=== PATIENT | female | born 1955 | race Caucasian/White ===

== ENCOUNTER 2017-09-08 15:20 | Emergency (ER) | payer OTHER ==
[2017-09-08] MEDS ORDERED: TORAdol 30 mg Injection IV ONE (15:43)
--- NOTE | 2017-09-08 15:47 | ERPHSYRPT ---
- History of Present Illness Time Seen by Provider: 09/08/17 15:45 Historian: patient Patient Subjective Stated Complaint: pt reports heriberto 30 min ago sudden onset of right sided abd pain-denies vomiting but states that she feels like she could but doesn't usually vomit-denies difficulty with urination or bowels Triage Nursing Assessment: pt pink warm and afk-viecb-cdgfobtive with no difficulty-abd soft and tender to palp-pt states pain does not change rather there is palp or not-denies rebound tenderness-resp easy and nonlabored Physician History: mild to mod rlq ache pain for one hour, nonrad, no injury, no fever, no emesis Allergies/Adverse Reactions: codeine Allergy (Mild, Verified 09/08/17 15:33) Hives Home Medications: Adalimumab [Humira Pen] 0.8 ml IM WEEKLY 09/08/17 [History] Aspirin 81 gm Chew [Baby Aspirin 81 mg Chew] 81 mg PO DAILY 09/08/17 [ History] Levothyroxine Sodium [Synthroid] 125 mcg PO DAILY 09/08/17 [History] Loratadine 10 mg PO DAILY 09/08/17 [History] Losartan/Hydrochlorothiazide [Losartan-Hctz 50-12.5 mg Tab] 1 tab PO DAILY 09/08 [History] Metoprolol Tartrate 25 mg PO DAILY 09/08/17 [History] Pravastatin Sodium 40 mg PO DAILY 09/08/17 [History] Hx Tetanus, Diphtheria Vaccination/Date Given: No Hx Influenza Vaccination/Date Given: Yes Hx Pneumococcal Vaccination/Date Given: No Immunizations Up to Date: Yes - Review of Systems Constitutional: No Fever Eyes: No Eye Redness Ears, Nose, & Throat: No Mouth Pain Respiratory: No Dyspnea Cardiac: No Chest Pain Abdominal/Gastrointestinal: Abdominal Pain, No Vomiting Genitourinary Symptoms: No Dysuria Musculoskeletal: No Back Pain Skin: No Rash Neurological: No Headache - Past Medical History Pertinent Past Medical History: Yes Cardiac History: High Cholesterol, Other Endocrine Medical History: Diabetes Type II, Hypothyroidism - Past Surgical History Past Surgical History: Yes Female Surgical History: Hysterectomy - Social History Smoking Status: Never smoker Exposure to second hand smoke: No Drug Use: none Patient Lives Alone: No - Female History Hx Last Menstrual Period: hysterectomy Hx Now: No - Nursing Vital Signs Nursing Vital Signs: Initial Vital Signs Temperature 98.9 F 09/08/17 15:29 Pulse Rate 87 09/08/17 15:29 Respiratory Rate 18 09/08/17 15:29 Blood Pressure 169/94 09/08/17 15:29 O2 Sat by Pulse Oximetry 94 L 09/08/17 15:29 Pain Scale Pain Intensity 4 - Physical Exam General Appearance: no apparent distress Eye Exam: PERRL/EOMI, eyes nml inspection Ears, Nose, Throat Exam: moist mucous membranes Neck Exam: normal inspection Respiratory Exam: normal breath sounds Cardiovascular Exam: regular rate/rhythm Gastrointestinal/Abdomen Exam: soft, tenderness, No distention, No pulsatile mass, No rebound Extremity Exam: normal inspection Neurologic Exam: alert, oriented x 3, cooperative Skin Exam: warm, dry SpO2 Interpretation: normal SpO2: 94 Oxygen Delivery: Room Air - Course Nursing assessment & vital signs reviewed: Yes EKG Interpreted by Me: Other (nsr 76, no stemi) - CT Exams Abdomen/Pelvis CT Interpretation: Discussed w/radiologist, Other (right hydronephrosis and 1.5mm stone at right uvj) Ordered Tests: Active Orders 24 hr Category Date Time Status EKG-ER Only STAT Care 09/08/17 15:47 Active IV Insertion STAT Care 09/08/17 15:43 Active ABDOMEN AND PELVIS W/0 CONTRAS [CT] Stat Exams 09/08/17 15:43 Completed CBC W DIFF Stat Lab 09/08/17 16:18 Completed CMP Stat Lab 09/08/17 16:18 Completed CULTURE,URINE Stat Lab 09/08/17 16:02 Received LIPASE Stat Lab 09/08/17 16:18 Completed TROPONIN Q3H Lab 09/08/17 16:18 Completed TROPONIN Q3H Lab 09/08/17 19:00 Ordered TROPONIN Q3H Lab 09/08/17 22:00 Ordered UA W/ MICROSCOPIC Stat Lab 09/08/17 16:02 Completed Medication Summary Discontinued Medications Generic Name Dose Route Start Last Admin Trade Name Freq PRN Reason Stop Dose Admin Sodium Chloride 1,000 mls @ 999 mls/hr 09/08/17 15:52 09/08/17 16:02 Sodium Chloride 0.9% 1000 Ml IV 09/08/17 16:52 999 mls/hr .Q1H1M STA Administration Sodium Chloride Confirm 09/08/17 15:53 Sodium Chloride 0.9% 1000 Ml Administered 09/08/17 15:54 Dose 1,000 mls @ ud .ROUTE .STK-MED ONE Ketorolac Tromethamine 30 mg 09/08/17 15:43 09/08/17 16:02 Toradol 30 Mg Injection IV 09/08/17 15:44 30 mg STAT ONE Administration Ketorolac Tromethamine Confirm 09/08/17 15:52 Toradol 30 Mg Injection Administered 09/08/17 15:53 Dose 30 mg .ROUTE .STK-MED ONE Ondansetron HCl 4 mg 09/08/17 15:52 09/08/17 16:02 Zofran 4 Mg/2 Ml Vial IV 09/08/17 15:53 4 mg STAT ONE Administration Ondansetron HCl Confirm 09/08/17 15:52 Zofran 4 Mg/2 Ml Vial Administered 09/08/17 15:53 Dose 4 mg .ROUTE .STK-MED ONE Lab/Rad Data: Laboratory Result Diagrams 09/08/17 16:18 09/08/17 16:18 Laboratory Results 09/08/17 09/08/17 09/08/17 Range/Units 16:18 16:18 16:18 WBC 10.3 (4.0-10.5) K/mm3 RBC 4.77 (4.1-5.4) M/mm3 Hgb 13.8 (12.0-16.0) gm/dl Hct 41.0 (35-47) % MCV 86.0 (78-100) fl MCH 28.9 (26-32) pg MCHC 33.7 (32-36) g/dl RDW 13.9 (11.5-14.0) % Plt Count 214 (150-450) K/mm3 MPV 10.4 H (6-9.5) fl Gran % 72.7 H (36.0-66.0) % Eos # (Auto) 0.25 (0-0.5) Absolute Lymphs (auto) 1.65 (1.0-4.6) Absolute Monos (auto) 0.84 (0.0-1.3) Lymphocytes % 16.1 L (24.0-44.0) % Monocytes % 8.2 (0.0-12.0) % Eosinophils % 2.4 (0.00-5.0) % Basophils % 0.6 (0.0-0.4) % Absolute Granulocytes 7.48 H (1.4-6.9) Basophils # 0.06 (0-0.4) Sodium 143 (137-145) mmol/L Potassium 3.7 (3.5-5.1) mmol/L Chloride 104 (98-107) mmol/L Carbon Dioxide 25 (22-30) mmol/L Anion Gap 17.8 H (5-15) MEQ/L BUN 18 H (7-17) mg/dL Creatinine 1.09 H (0.52-1.04) mg/dL Estimated GFR 54.1 ML/MIN Glucose 166 H (74-106) mg/dL Calcium 9.8 (8.4-10.2) mg/dL Total Bilirubin 0.40 (0.2-1.3) mg/dL AST 22 (14-36) U/L ALT 21 (0-35) U/L Alkaline Phosphatase 65 (38-126) U/L Troponin I < 0.012 (0.000-0.034) ng/mL Serum Total Protein 7.6 (6.3-8.2) g/dL Albumin 4.6 (3.5-5.0) g/dL Lipase 67 (23-300) U/L Ur Collection Type Urine Color (YELLOW) Urine Appearance (CLEAR) Urine pH (5-6) Ur Specific [place] (1.005-1.025) Urine Protein (Negative) Urine Ketones (NEGATIVE) Urine Blood (0-5) Juan/ul Urine Nitrite (NEGATIVE) Urine Bilirubin (NEGATIVE) Urine Urobilinogen (0-1) mg/dL Ur Leukocyte Esterase (NEGATIVE) Urine Microscopic RBC (0-2) /HPF Urine Microscopic WBC (0-5) /HPF Ur Epithelial Cells (FEW) /HPF Urine Bacteria (NEGATIVE) /HPF Urine Culture Reflexed (NO) Urine Glucose (NEGATIVE) mg/dL Specimen Received 09/08/17 Range/Units 16:02 WBC (4.0-10.5) K/mm3 RBC (4.1-5.4) M/mm3 Hgb (12.0-16.0) gm/dl Hct (35-47) % MCV (78-100) fl MCH (26-32) pg MCHC (32-36) g/dl RDW (11.5-14.0) % Plt Count (150-450) K/mm3 MPV (6-9.5) fl Gran % (36.0-66.0) % Eos # (Auto) (0-0.5) Absolute Lymphs (auto) (1.0-4.6) Absolute Monos (auto) (0.0-1.3) Lymphocytes % (24.0-44.0) % Monocytes % (0.0-12.0) % Eosinophils % (0.00-5.0) % Basophils % (0.0-0.4) % Absolute Granulocytes (1.4-6.9) Basophils # (0-0.4) Sodium (137-145) mmol/L Potassium (3.5-5.1) mmol/L Chloride (98-107) mmol/L Carbon Dioxide (22-30) mmol/L Anion Gap (5-15) MEQ/L BUN (7-17) mg/dL Creatinine (0.52-1.04) mg/dL Estimated GFR ML/MIN Glucose (74-106) mg/dL Calcium (8.4-10.2) mg/dL Total Bilirubin (0.2-1.3) mg/dL AST (14-36) U/L ALT (0-35) U/L Alkaline Phosphatase (38-126) U/L Troponin I (0.000-0.034) ng/mL Serum Total Protein (6.3-8.2) g/dL Albumin (3.5-5.0) g/dL Lipase (23-300) U/L Ur Collection Type CLEAN CATCH Urine Color YELLOW (YELLOW) Urine Appearance CLEAR (CLEAR) Urine pH 5.0 (5-6) Ur Specific [place] 1.020 (1.005-1.025) Urine Protein TRACE (Negative) Urine Ketones NEGATIVE (NEGATIVE) Urine Blood 250 (0-5) Juan/ul Urine Nitrite NEGATIVE (NEGATIVE) Urine Bilirubin NEGATIVE (NEGATIVE) Urine Urobilinogen NORMAL (0-1) mg/dL Ur Leukocyte Esterase 1+ (NEGATIVE) Urine Microscopic RBC 10-15 (0-2) /HPF Urine Microscopic WBC 10-15 (0-5) /HPF Ur Epithelial Cells MODERATE (FEW) /HPF Urine Bacteria FEW (NEGATIVE) /HPF Urine Culture Reflexed YES (NO) Urine Glucose NEGATIVE (NEGATIVE) mg/dL Specimen Received 09/08/17 1600 - Progress Progress: improved Progress Note: 09/08/17 17:49 see your doctor, return if worse Counseled pt/family regarding: lab results, diagnosis, need for follow-up, rad results - Departure Time of Disposition: 17:49 Departure Disposition: Home Clinical Impression: Hydronephrosis Qualifiers: Hydronephrosis type: with renal calculous obstruction Qualified Code(s): N13.2 - Hydronephrosis with renal and ureteral calculous obstruction Condition: Stable Critical Care Time: No Referrals: AV SEXTON NP [Primary Care Provider] - Additional Instructions: call your doctor for Urology referral Prescriptions: Ondansetron ODT 4 MG [Zofran Odt 4 mg] 1 tab PO Q6H PRN PRN #10 tab.rapdis PRN Reason: Nausea/Vomiting Cephalexin Mh 500 mg [Keflex 500 mg] 1 cap PO QID #40 capsule Tamsulosin HCl 0.4 mg [Flomax 0.4 MG] 1 cap PO HS #7 cap
[2017-09-08] MEDS ORDERED: Zofran 4 MG/2 ML VIAL IV ONE (15:52)
[2017-09-08] MEDS ORDERED: Zofran 4 MG/2 ML VIAL ONE (15:52)
[2017-09-08] MEDS ORDERED: TORAdol 30 mg Injection ONE (15:52)
[2017-09-08] MEDS ORDERED: Sodium Chloride 0.9% 1000 ML 1,000 ML IV STA (15:52)
[2017-09-08] MEDS ORDERED: Sodium Chloride 0.9% 1000 ML 1,000 ML ONE (15:53)
[2017-09-08 16:24] LABS: BASOPHIL % 0.6 % (0.0-0.4); Basophil (Absolute #) 0.06 (0-0.4); Eosinophil % 2.4 % (0.00-5.0); Eosinophil (Absolute #) 0.25 (0-0.5); Granulocyte Absolute (ANC) 7.48 (1.4-6.9); Granulocytes % 72.7 % (36.0-66.0); Hemoglobin 13.8 gm/dl (12.0-16.0); Lymphocyte (Absolute #) 1.65 (1.0-4.6); Lymphocytes % 16.1 % (24.0-44.0); Mean Corpuscular Hemoglobin 28.9 pg (26-32); Mean Corpuscular Hgb Concent. 33.7 g/dl (32-36); Mean Platelet Volume 10.4 fl (6-9.5); Monocyte (Absolute #) 0.84 (0.0-1.3); Monocytes % 8.2 % (0.0-12.0); Platelet Count 214 K/mm3 (150-450); Red Blood Count 4.77 M/mm3 (4.1-5.4); Red Cell Distribution Width 13.9 % (11.5-14.0); White Blood Count 10.3 K/mm3 (4.0-10.5)
[2017-09-08 16:45] LABS: ALBUMIN 4.6 g/dL (3.5-5.0); ANION GAP 17.8 MEQ/L (5-15); BILIRUBIN,TOTAL 0.4 mg/dL (0.2-1.3); Calcium 9.8 mg/dL (8.4-10.2); Creatinine 1 1.09 mg/dL (0.52-1.04); Potassium 3.7 mmol/L (3.5-5.1); Total Protein 7.6 g/dL (6.3-8.2)
[2017-09-08 16:48] LABS: Appearance CLEAR (CLEAR); Bilirubin NEGATIVE (NEGATIVE); Blood 250 Ery/ul (0-5); Glucose NEGATIVE (NEGATIVE); Ketones NEGATIVE (NEGATIVE); Leukocyte Esterase 1+ (NEGATIVE); Nitrite NEGATIVE (NEGATIVE); Protein,Urine Dip TRACE (Negative); Urobilinogen NORMAL mg/dL (0-1)
[2017-09-08 16:49] LABS: Bacteria FEW /HPF (NEGATIVE); Epithelial Cells MODERATE /HPF (FEW)
--- NOTE | 2017-09-08 17:02 | XRAY ---
Exam: CT of the abdomen and pelvis without IV contrast from 09/08/2017. CTDI: 26.74 Comparison: None. Indication: Right lower quadrant/flank pain, nausea and vomiting, symptoms started this afternoon. The patient is status post hysterectomy. Technique: Non-IV contrast axial images were obtained through the abdomen and pelvis. Reconstructed coronal and sagittal images were created and reviewed. Findings: The lung bases reveals some minimal compression atelectatic changes at the posterior lateral left lung base. No active lung disease is seen. However, there appears to be a small pericardial effusion, best seen on axial images #3 and #4. Correlate clinically. The right kidney reveals some asymmetric mild hydronephrosis and hydroureter down to the ureterovesical junction. Interestingly, a stone is not evident seen on the axial images, but I do detect a tiny approximately 1.5 mm in diameter obstructing stone within the distal right ureter at the ureterovesical junction on coronal image #97 and sagittal image #62. These findings are consistent with acute obstructive uropathy. The left ureter appears unremarkable. The remainder of the right kidney is remarkable for a 3.0 cm cyst within the lower pole. I also note a. 2.45 cm in diameter cyst at the lateral margin of lower pole of the left kidney and a small 0.7 cm in diameter apparent hyperdense cyst at the lower pole of the left kidney. No other renal or ureteral calculi are seen. The urinary bladder is almost empty. The liver is remarkable for prominent inferior extension of the right lobe (Regine's lobe) representing a normal variant. No definite focal hepatic mass or intrahepatic biliary duct distention is seen. Assessment of the solid organs is limited on a non-IV contrast study only. The gallbladder is partially contracted. No dense calcifications are seen within the gallbladder. The spleen measures 13.2 cm in greatest length on sagittal image #128. This is borderline enlarged. No focal splenic mass is seen. Secretion/fluid is seen within the stomach. The pancreas appears unremarkable. I believe there is a 1.1 cm partially calcified splenic artery aneurysm within the left upper quadrant on axial images #22 through #24. The adrenal glands appear unremarkable. Mild atherosclerotic vascular calcification is seen within the abdominal aorta, origin of the celiac axis and SMA, and origin of both renal arteries, left greater than right. No abdominal aortic aneurysm or abnormal retroperitoneal lymphadenopathy is seen. No free intraperitoneal air is identified. The anterior abdominal wall appears intact. The appendix appears unremarkable within the right lower quadrant. No right lower quadrant inflammation is seen. The uterus is surgically absent. No enlarged pelvic lymph nodes or free fluid is seen. I see no evidence of bowel distention or obstruction. The skeleton reveals no fracture or aggressive bone lesion. There appears to be a small bone island within the T10 vertebral body. Mild lower lumbar facet joint arthropathy is seen at L4-L5 and L5-S1. Mild degenerative changes are seen at the inferior aspect of both sacroiliac joints, left greater than right, manifested by spurring and sclerosis on both sides of each SI joint. However, no significant SI joint narrowing is seen. Impression: 1. There appears to be a 1.5 mm in diameter obstructing stone at the right ureterovesical junction causing mild right-sided hydronephrosis and hydroureter. I believe this is the cause of the patient's symptoms. 2. Mild pericardial effusion, best seen on axial images #3 and #4. 3. The appendix appears unremarkable. 4. No other acute intra-abdominal or pelvic process seen. 5. Other incidental findings are seen such as bilateral renal cortical cysts, a small calcified splenic artery aneurysm, and some atherosclerotic vascular calcification. The uterus is surgically absent.
[2017-09-08 18:01] VITALS: O2SAT 95
[2017-09-08 18:14] VITALS: BP 154/94; PULSE 73
== END 2017-09-08 18:13 | disposition home or self-care (01) ==
LOC: ED 15:20
DX: N13.2 Hydronephrosis with renal and ureteral calculous obstruction (principal); E11.9 Type 2 diabetes mellitus without complications; E03.9 Hypothyroidism, unspecified; E78.00 Pure hypercholesterolemia, unspecified; Z79.899 Other long term (current) drug therapy
CPT/HCPCS: 36000; 36415; 74176; 80053; 81000; 83690; 84484; 85025; 87077; 87086; 87186; 93005; 96374; 96375; 99284; J1885; J2405

== ENCOUNTER 2020-12-15 11:29 | Emergency (ER) | payer OTHER ==
--- NOTE | 2020-12-15 11:37 | ERPHSYRPT ---
- History of Present Illness Time Seen by Provider: 12/15/20 11:36 Source: patient Exam Limitations: no limitations Physician History: This is a 65-year-old white female who is obese and is a patient of nurse raul Bennett and presents with 3-week history of intermittent nausea and vomiting symptoms. She had no diarrhea. She denies chest pain. She has some epigastric discomfort which seems to have improved with the use of proton pump inhibitor omeprazole that the patient started Friday prior to this evaluation. However she still has been having episodes of nausea and vomiting. Lab work was performed on 12/12/2020 which was reported to the patient today showing "possible acute renal failure" per the patient. Patient also had a negative Covid 19 test that was performed and read out on 12/12/2020. Patient has a history of hypothyroidism, elevated cholesterol and hypertension. Patient has no shortness of breath. She has had no fevers. She has no cough and no sore throat. Patient states she actually feels pretty good at this time because she took her medicine this morning. She was told to come to the emergency department for evaluation by nurse raul Bennett's office because of abnormal labs. Patient has no history of acute renal failure episodes in the past. She does not see a longwall shearer operator. Timing/Duration: week(s) (3) Severity: mild Modifying Factors: Improves With: medication Associated Symptoms: nausea, vomiting, abdominal pain (Epigastric) Allergies/Adverse Reactions: codeine Allergy (Mild, Verified 12/15/20 11:35) Hives Home Medications: Aspirin 81 gm Chew [Baby Aspirin 81 mg Chew] 81 mg PO DAILY 09/08/17 [History] Levothyroxine Sodium [Synthroid] 125 mcg PO DAILY 09/08/17 [History] Loratadine 10 mg PO DAILY 09/08/17 [History] Losartan/Hydrochlorothiazide [Losartan-Hctz 50-12.5 mg Tab] 1 tab PO DAILY 09/08/17 [History] Metoprolol Tartrate 25 mg PO DAILY 09/08/17 [History] Pravastatin Sodium 40 mg PO DAILY 09/08/17 [History] Omeprazole 40 mg PO DAILY 12/15/20 [History] Sucralfate 1 gm [Carafate 1 GM] 1 gm PO TID 12/15/20 [History] Hx Tetanus, Diphtheria Vaccination/Date Given: No Hx Influenza Vaccination/Date Given: Yes Hx Pneumococcal Vaccination/Date Given: No Travel Risk - International Travel Have you traveled outside of the country in past 3 weeks: No - Coronavirus Screening Are you exhibiting any of the following symptoms?: No Close contact with a COVID-19 positive Pt in past 14-21 Days: No - Review of Systems Constitutional: No Symptoms Eyes: No Symptoms Ears, Nose, & Throat: No Symptoms Respiratory: No Symptoms Cardiac: No Symptoms Abdominal/Gastrointestinal: Abdominal Pain (Epigastric), Nausea, Vomiting Genitourinary Symptoms: No Symptoms Musculoskeletal: No Symptoms Skin: No Symptoms Neurological: No Symptoms Psychological: No Symptoms Endocrine: No Symptoms Hematologic/Lymphatic: No Symptoms Immunological/Allergic: No Symptoms All Other Systems: Reviewed and Negative - Past Medical History Pertinent Past Medical History: Yes Cardiac History: High Cholesterol, Other Endocrine Medical History: Diabetes Type II, Hypothyroidism - Past Surgical History Past Surgical History: Yes Female Surgical History: Hysterectomy - Social History Smoking Status: Never smoker Exposure to second hand smoke: No Drug Use: none Patient Lives Alone: No - Nursing Vital Signs Nursing Vital Signs: Initial Vital Signs Temperature 96.8 F 12/15/20 11:36 Pulse Rate 64 12/15/20 11:36 Respiratory Rate 18 12/15/20 11:36 Blood Pressure 148/77 12/15/20 11:36 O2 Sat by Pulse Oximetry 97 12/15/20 11:36 Pain Scale Pain Intensity 0 - Physical Exam General Appearance: no apparent distress, alert, anxiety, obese Eye Exam: PERRL/EOMI, eyes nml inspection Ears, Nose, Throat Exam: normal ENT inspection, moist mucous membranes Neck Exam: normal inspection, non-tender, supple, full range of motion Respiratory Exam: normal breath sounds, lungs clear, airway intact, No chest tenderness, No respiratory distress Cardiovascular Exam: regular rate/rhythm, normal heart sounds, normal peripheral pulses Gastrointestinal/Abdomen Exam: soft, normal bowel sounds, tenderness (Mild epigastric tenderness to palpation), guarding, No rebound Pelvic Exam: not done Rectal Exam: not done Back Exam: normal inspection, normal range of motion, No CVA tenderness, No vertebral tenderness Extremity Exam: normal inspection, normal range of motion, pelvis stable Neurologic Exam: alert, oriented x 3, cooperative, reel winder II-XII nml as tested, nor mal mood/affect, nml cerebellar function, nml station & gait, sensation nml Skin Exam: normal color, warm, dry Lymphatic Exam: No adenopathy SpO2 Interpretation: normal O2 Delivery: Room Air - Course Nursing assessment & vital signs reviewed: Yes EKG Interpreted by Me: RATE (61), Sinus Rhythm, NORMAL AXIS, NORMAL INTERVALS, NORMAL QRS, NORMAL ST-T, Other (No acute ischemic changes on today's EKG. There are no changes when compared to EKG dated 09/08/2017.) Ordered Tests: Active Orders 24 hr Category Date Time Status EKG-ER Only STAT Care 12/15/20 11:46 Active IV Insertion STAT Care 12/15/20 11:46 Active ABDOMEN AND PELVIS W/0 CONTRAS [CT] Stat Exams 12/15/20 11:46 Completed AMYLASE Stat Lab 12/15/20 13:30 Completed CBC W DIFF Stat Lab 12/15/20 11:46 Completed CMP Stat Lab 12/15/20 13:30 Completed CULTURE,URINE Stat Lab 12/15/20 11:51 Received LIPASE Stat Lab 12/15/20 13:30 Completed Lactic Acid Stat Lab 12/15/20 13:12 Completed T4 (Thyroxine) Stat Lab 12/15/20 13:30 Completed TROPONIN Q3H Lab 12/15/20 13:30 Completed TROPONIN Q3H Lab 12/16/20 00:00 Ordered TSH [TSH, 3RD Generation] Stat Lab 12/15/20 13:30 Completed UA W/RFX UR CULTURE Stat Lab 12/15/20 11:51 Completed Medication Summary Discontinued Medications Generic Name Dose Route Start Last Admin Trade Name Ishmael PRN Reason Stop Dose Admin Sodium Chloride 1,000 mls @ 999 mls/hr 12/15/20 11:46 12/15/20 12:55 Sodium Chloride 0.9% 1000 Ml IV 12/15/20 12:46 Infused .Q1H1M STA Infusion Sodium Chloride Confirm 12/15/20 11:52 Sodium Chloride 0.9% 1000 Ml Administered 12/15/20 11:53 Dose 1,000 mls @ ud .ROUTE .STK-MED ONE Ceftriaxone Sodium/Dextrose 1 g in 50 mls @ 100 mls/hr 12/15/20 13:25 12/15/20 14:35 Rocephin 1 Gm-D5w 50 Ml Bag IV 12/15/20 13:54 Infused STAT STA Infusion Ceftriaxone Sodium/Dextrose Confirm 12/15/20 13:40 Rocephin 1 Gm-D5w 50 Ml Bag Administered 12/15/20 13:41 Dose 1 g in 50 mls @ ud IV .STK-MED ONE Ondansetron HCl 4 mg 12/15/20 11:46 12/15/20 11:54 Ondansetron Hcl 4 Mg/2 Ml Vial IV 12/15/20 11:47 4 mg STAT ONE Administration Ondansetron HCl Confirm 12/15/20 11:52 Ondansetron Hcl 4 Mg/2 Ml Vial Administered 12/15/20 11:53 Dose 4 mg .ROUTE .STK-MED ONE Lab/Rad Data: Laboratory Result Diagrams 12/15/20 11:46 12/15/20 13:30 Laboratory Results 12/15/20 12/15/20 12/15/20 Range/Units 13:30 13:30 13:30 WBC (4.0-10.5) K/mm3 RBC (4.1-5.4) M/mm3 Hgb (12.0-16.0) gm/dl Hct (35-47) % MCV (78-100) fl MCH (26-32) pg MCHC (32-36) g/dl RDW (11.5-14.0) % Plt Count (150-450) K/mm3 MPV (7.5-11.0) fl Gran % (36.0-66.0) % Eos # (Auto) (0-0.5) Absolute Lymphs (auto) (1.0-4.6) Absolute Monos (auto) (0.0-1.3) Lymphocytes % (24.0-44.0) % Monocytes % (0.0-12.0) % Eosinophils % (0.00-5.0) % Basophils % (0.0-0.4) % Absolute Granulocytes (1.4-6.9) Basophils # (0-0.4) Sodium 140 (137-145) mmol/L Potassium 4.2 (3.5-5.1) mmol/L Chloride 111 H (98-107) mmol/L Carbon Dioxide 13 L* (22-30) mmol/L Anion Gap 19.5 H (5-15) MEQ/L BUN 92 H (7-17) mg/dL Creatinine 7.26 H (0.52-1.04) mg/dL Estimated GFR 6.0 ML/MIN Glucose 87 (74-106) mg/dL Lactic Acid (0.4-2.0) Calcium 8.9 (8.4-10.2) mg/dL Total Bilirubin 0.30 (0.2-1.3) mg/dL AST 14 (14-36) U/L ALT 8 (0-35) U/L Alkaline Phosphatase 54 (38-126) U/L Troponin I < 0.012 (0.000-0.034) ng/mL Serum Total Protein 6.9 (6.3-8.2) g/dL Albumin 3.8 (3.5-5.0) g/dL Amylase 136 H (30-110) U/L Lipase 215 (23-300) U/L Thyroxine (T4) 8.54 (5.53-10.96) ug/dL TSH 3rd Generation 0.266 L (0.47-4.68) mIU/L Urine Color (YELLOW) Urine Appearance (CLEAR) Urine pH (5-6) Ur Specific [place] (1.005-1.025) Urine Protein (Negative) Urine Ketones (NEGATIVE) Urine Blood (0-5) Juan/ul Urine Nitrite (NEGATIVE) Urine Bilirubin (NEGATIVE) Urine Urobilinogen (0-1) mg/dL Ur Leukocyte Esterase (NEGATIVE) Urine WBC (Auto) (0-5) /HPF Urine RBC (Auto) (0-2) /HPF U Epithel Cells (Auto) (FEW) /HPF Urine Bacteria (Auto) (NEGATIVE) /HPF U Non-Squamous Epi Cells (FEW) /HPF Amorphous Crystals (NEGATIVE) /HPF Urine Culture Reflexed (NO) Urine Glucose (NEGATIVE) mg/dL 12/15/20 12/15/20 12/15/20 Range/Units 13:12 11:51 11:46 WBC 9.6 (4.0-10.5) K/mm3 RBC 3.83 L (4.1-5.4) M/mm3 Hgb 10.7 L (12.0-16.0) gm/dl Hct 33.0 L (35-47) % MCV 86.2 (78-100) fl MCH 27.9 (26-32) pg MCHC 32.4 (32-36) g/dl RDW 13.7 (11.5-14.0) % Plt Count 252 (150-450) K/mm3 MPV 9.4 (7.5-11.0) fl Gran % 79.4 H (36.0-66.0) % Eos # (Auto) 0.19 (0-0.5) Absolute Lymphs (auto) 1.19 (1.0-4.6) Absolute Monos (auto) 0.57 (0.0-1.3) Lymphocytes % 12.4 L (24.0-44.0) % Monocytes % 5.9 (0.0-12.0) % Eosinophils % 2.0 (0.00-5.0) % Basophils % 0.3 (0.0-0.4) % Absolute Granulocytes 7.60 H (1.4-6.9) Basophils # 0.03 (0-0.4) Sodium (137-145) mmol/L Potassium (3.5-5.1) mmol/L Chloride (98-107) mmol/L Carbon Dioxide (22-30) mmol/L Anion Gap (5-15) MEQ/L BUN (7-17) mg/dL Creatinine (0.52-1.04) mg/dL Estimated GFR ML/MIN Glucose (74-106) mg/dL Lactic Acid 0.8 (0.4-2.0) Calcium (8.4-10.2) mg/dL Total Bilirubin (0.2-1.3) mg/dL AST (14-36) U/L ALT (0-35) U/L Alkaline Phosphatase (38-126) U/L Troponin I (0.000-0.034) ng/mL Serum Total Protein (6.3-8.2) g/dL Albumin (3.5-5.0) g/dL Amylase (30-110) U/L Lipase (23-300) U/L Thyroxine (T4) (5.53-10.96) ug/dL TSH 3rd Generation (0.47-4.68) mIU/L Urine Color YELLOW (YELLOW) Urine Appearance CLOUDY (CLEAR) Urine pH 5.0 (5-6) Ur Specific [place] 1.012 (1.005-1.025) Urine Protein 30 (Negative) Urine Ketones NEGATIVE (NEGATIVE) Urine Blood MODERATE (0-5) Juan/ul Urine Nitrite NEGATIVE (NEGATIVE) Urine Bilirubin NEGATIVE (NEGATIVE) Urine Urobilinogen NEGATIVE (0-1) mg/dL Ur Leukocyte Esterase LARGE (NEGATIVE) Urine WBC (Auto) 51-100 (0-5) /HPF Urine RBC (Auto) 6-10 (0-2) /HPF U Epithel Cells (Auto) FEW (FEW) /HPF Urine Bacteria (Auto) MODERATE (NEGATIVE) /HPF U Non-Squamous Epi Cells RARE (FEW) /HPF Amorphous Crystals FEW (NEGATIVE) /HPF Urine Culture Reflexed YES (NO) Urine Glucose 50 (NEGATIVE) mg/dL - Progress Progress: improved Progress Note: 12/15/20 14:40 Cat scan of the abdomen pelvis without contrast shows a new prominent appendix. Patient was reexamined. Patient has no pain in the right lower quadrant on examination/palpation. She has mild discomfort in the epigastric area. 12/15/20 17:27 medical decision making: This patient was discussed with [facility] emergency department physician Dr. Rosado. I reviewed the patient history, laboratory work-up and x-ray findings with him. He accepts the patient in transfer emergency department to emergency department. He wanted an additional liter of fluid of normal saline. Counseled pt/family regarding: lab results, diagnosis, rad results - Departure Departure Disposition: Transfer Clinical Impression: Acute renal failure, Urinary tract infection Condition: Stable Critical Care Time: No Referrals: AV BENNETT NP [Primary Care Provider] -
[2020-12-15] MEDS ORDERED: Sodium Chloride 0.9% 1000 ML 1,000 ML IV STA ×2 (11:46→17:31)
[2020-12-15] MEDS ORDERED: Zofran 4 MG/2 ML VIAL IV ONE (11:46)
[2020-12-15] MEDS ORDERED: Zofran 4 MG/2 ML VIAL ONE (11:52)
[2020-12-15] MEDS ORDERED: Sodium Chloride 0.9% 1000 ML 1,000 ML ONE ×2 (11:52→17:59)
[2020-12-15 12:22] LABS: Amourphous Crystal FEW /HPF (NEGATIVE); Appearance CLOUDY (CLEAR); Bacteria MODERATE /HPF (NEGATIVE); Bilirubin NEGATIVE (NEGATIVE); Blood MODERATE Ery/ul (0-5); Epithelial Cells FEW /HPF (FEW); Glucose 50 mg/dL (NEGATIVE); Ketones NEGATIVE (NEGATIVE); Leukocyte Esterase LARGE (NEGATIVE); Nitrite NEGATIVE (NEGATIVE); Non-Squamous Epithelial Cells RARE /HPF (FEW); Protein,Urine Dip 30 (Negative); Specific Gravity 1.012 (1.005-1.025); Urobilinogen NEGATIVE mg/dL (0-1); WBC 51-100 /HPF (0-5)
--- NOTE | 2020-12-15 12:41 | XRAY ---
Indication: Nausea and vomiting 3-4 weeks. Renal failure. Multiple contiguous axial images obtained through the abdomen and pelvis without contrast. Comparison: September 08, 2017. Lung bases again not demonstrates mild scattered fibrosis/scarring. No infiltrate or effusion. Heart not enlarged. Again small hiatal hernia. Noncontrasted stomach and bowel loops appear nonobstructed. Appendix is now prominent up to 9 mm in diameter concerning for mild/early appendicitis. No free fluid/air. There remains grossly stable bilateral renal cysts without hydronephrosis and incidental hysterectomy. Remaining liver, gallbladder, pancreas, spleen, adrenal glands, kidneys, ureters, and bladder are unremarkable for noncontrast exam. Again mild scattered aortoiliac calcifications without AAA. 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 Osseous structures intact again with minimal degenerative changes to the spine and incidental tiny T10 bone island. Impression: 1. New prominent appendix. Rule out mild/early appendicitis. 2. Again incidental small hiatal hernia, bilateral renal cysts, arteriosclerotic calcifications, and chronic bony findings.
[2020-12-15] MEDS ORDERED: ROCEPHIN 1 Gm-D5w 50 ml Bag** 1 G/50 ML IVPB IV STA (13:25)
[2020-12-15] MEDS ORDERED: ROCEPHIN 1 Gm-D5w 50 ml Bag** 1 G/50 ML IVPB IV ONE (13:40)
[2020-12-15 13:49] LABS: BASOPHIL % 0.3 % (0.0-0.4); Basophil (Absolute #) 0.03 (0-0.4); Eosinophil (Absolute #) 0.19 (0-0.5); Hemoglobin 10.7 gm/dl (12.0-16.0); Lymphocyte (Absolute #) 1.19 (1.0-4.6); Lymphocytes % 12.4 % (24.0-44.0); Mean Cell Volume 86.2 fl (78-100); Mean Corpuscular Hemoglobin 27.9 pg (26-32); Mean Corpuscular Hgb Concent. 32.4 g/dl (32-36); Mean Platelet Volume 9.4 fl (7.5-11.0); Monocyte (Absolute #) 0.57 (0.0-1.3); Monocytes % 5.9 % (0.0-12.0); Neutrophil % 79.4 % (36.0-66.0); Platelet Count 252 K/mm3 (150-450); Red Blood Count 3.83 M/mm3 (4.1-5.4); Red Cell Distribution Width 13.7 % (11.5-14.0); White Blood Count 9.6 K/mm3 (4.0-10.5)
[2020-12-15 14:43] LABS: ALBUMIN 3.8 g/dL (3.5-5.0); ANION GAP 19.5 MEQ/L (5-15); BILIRUBIN,TOTAL 0.3 mg/dL (0.2-1.3); Calcium 8.9 mg/dL (8.4-10.2); Creatinine 1 7.26 mg/dL (0.52-1.04); Potassium 4.2 mmol/L (3.5-5.1); Total Protein 6.9 g/dL (6.3-8.2)
[2020-12-15 15:14] LABS: T4 (Thyroxine) 8.54 ug/dL (5.53-10.96); TSH, 3RD Generation 0.266 mIU/L (0.47-4.68)
[2020-12-15 19:20] VITALS: BP 142/61; PULSE 59; O2SAT 97
== END 2020-12-15 19:29 | disposition short-term general hospital (02) ==
LOC: ED 11:29
DX: N17.9 Acute kidney failure, unspecified (principal); N39.0 Urinary tract infection, site not specified; Z79.899 Other long term (current) drug therapy
CPT/HCPCS: 36000; 36415; 74176; 80053; 81001; 82150; 83605; 83690; 84436; 84443; 84484; 85025; 87086; 93005; 96360; 96361; 96365; 96374; 99285; J0696; J2405